=== PATIENT | female | born 1960 | race Caucasian/White ===

== ENCOUNTER 2017-06-01 13:27 | Emergency (ER) | payer OTHER, MEDICAID ==
[~2017-06-01] VITALS: Ht 167.6 cm; Wt 87.0 kg
[~2017-06-01 13:27] MED LIST: ALPR1TAB10 PO; AMIT150T PO; CARI250T9 PO; CIPR500T87 PO; ESCI20TA PO; FURO-92 PO; GABA-826 PO; INSU100V11 INJ; IPRA3AMP INH; LANS30CA PO; METF500T4 PO; METR500T8 PO; ONDA8TAB16 SL; OXYC1TAB9 PO; PANT40TA5 PO; PHEN473S4 PO; QUET100T PO; TEMA15CA PO; TOPI100T8 PO; TRIA10PO2
[2017-06-01] MEDS ORDERED: KETOROLAC 30 MG/1 ML ONE (15:27)
[2017-06-01] MEDS ORDERED: OXYcodone/APAP 5/325MG TABLET ONE (15:27)
[2017-06-01] MEDS ORDERED: KETOROLAC 30 MG/1 ML IM ONE (15:30)
[2017-06-01] MEDS ORDERED: OXYcodone/APAP 5/325MG TABLET PO ONE (15:30)
[2017-06-01 16:08] VITALS: BP 141/78
== END 2017-06-01 16:10 | disposition home or self-care (01) ==
LOC: ED 15:30
DX: S92.351A Displaced fracture of fifth metatarsal bone, right foot, initial encounter for closed fracture (principal); E11.65 Type 2 diabetes mellitus with hyperglycemia; E78.00 Pure hypercholesterolemia, unspecified; I10 Essential (primary) hypertension; M32.9 Systemic lupus erythematosus, unspecified; M79.7 Fibromyalgia; X50.1XXA Overexertion from prolonged static or awkward postures, initial encounter; Y93.89 Activity, other specified; Y92.89 Other specified places as the place of occurrence of the external cause; Y99.8 Other external cause status
CPT/HCPCS: 29515; 73630; 96372; 99284; J1885

== ENCOUNTER 2018-12-24 13:00 | Outpatient (CLI) | payer MEDICARE, MEDICAID | END 2018-12-24 23:59 | disposition home or self-care (01) | LOC: WOUND 13:00 | PROVIDERS: ATTEND Family Medicine | DX: E11.622 Type 2 diabetes mellitus with other skin ulcer (principal); L98.491 Non-pressure chronic ulcer of skin of other sites limited to breakdown of skin; I11.9 Hypertensive heart disease without heart failure; L93.1 Subacute cutaneous lupus erythematosus; J45.20 Mild intermittent asthma, uncomplicated; E78.5 Hyperlipidemia, unspecified; E66.9 Obesity, unspecified; Z68.32 Body mass index [BMI] 32.0-32.9, adult; Z79.4 Long term (current) use of insulin; Z87.891 Personal history of nicotine dependence; Z90.710 Acquired absence of both cervix and uterus | CPT/HCPCS: 97597; G0463 ==

== ENCOUNTER 2018-12-31 13:27 | Outpatient (CLI) | payer MEDICARE, MEDICAID | END 2018-12-31 23:59 | disposition home or self-care (01) | LOC: WOUND 13:27 | PROVIDERS: ATTEND Family Medicine | DX: E11.622 Type 2 diabetes mellitus with other skin ulcer (principal); L98.491 Non-pressure chronic ulcer of skin of other sites limited to breakdown of skin; S41.101D Unspecified open wound of right upper arm, subsequent encounter; E11.40 Type 2 diabetes mellitus with diabetic neuropathy, unspecified; I11.9 Hypertensive heart disease without heart failure; L93.1 Subacute cutaneous lupus erythematosus; J45.20 Mild intermittent asthma, uncomplicated; E78.5 Hyperlipidemia, unspecified; E66.9 Obesity, unspecified; Z68.32 Body mass index [BMI] 32.0-32.9, adult; Z79.4 Long term (current) use of insulin; Z87.891 Personal history of nicotine dependence; Z90.710 Acquired absence of both cervix and uterus; X58.XXXD Exposure to other specified factors, subsequent encounter | CPT/HCPCS: G0463 ==

== ENCOUNTER 2019-06-07 18:32 | Inpatient (IN) | payer BC, MEDICAID, MEDICARE ==
[~2019-06-07] VITALS: Ht 167.6 cm; Wt 89.9 kg
[~2019-06-07 18:32] MED LIST changes: -IPRA3AMP INH; +IPRA3AMP30 INH; +METF500T17 PO; -METF500T4 PO; +METR-90 PO; -METR500T8 PO; +OXYC-432 PO; -OXYC1TAB9 PO
[2019-06-07] MEDS ORDERED: ONDANSETRON 2MG/ML, 2ML ONE (18:45)
[2019-06-07] MEDS ORDERED: MORPHINE SULFATE 4 MG/ML, 1ML ONE ×2 (18:52→19:26)
[2019-06-07] MEDS ORDERED: SODIUM CHLORIDE 0.9% 1,000ML IVBOLUS ONE ×2 (19:00→19:30)
[2019-06-07] MEDS ORDERED: SODIUM CHLORIDE FLUSH 10ML SYR IVF ONE (19:00)
[2019-06-07] MEDS ORDERED: ONDANSETRON 2MG/ML, 2ML IVPush ONE (19:00)
[2019-06-07] MEDS ORDERED: PLEASE ENTER HEIGHT AND WEIGHT MC SCH (19:00)
[2019-06-07] MEDS: MORPHINE SULFATE 4 MG/ML, 1ML IVPush PRN ×2 (19:17→20:09)
[2019-06-07 19:19] LABS: ALANINE AMINOTRANSFERASE 28 U/L (12-78); ALBUMIN 3.3 g/dL (3.4-5.0); ANION GAP 10 mmol/L (5-15); CALCIUM 9.5 mg/dL (8.5-10.1); CHLORIDE 105 mmol/L (98-107)
[2019-06-07 19:21] LABS: ALKALINE PHOSPHATASE 119 U/L (45-117); BILIRUBIN,TOTAL 0.4 mg/dL (0.2-1.0); CREATININE 1.24 mg/dL (0.55-1.02); TOTAL PROTEIN 7.3 g/dL (6.4-8.2); TROPONIN I < 0.015 ng/mL (0.000-0.045)
[2019-06-07 19:34] LABS: BASOPHILS # (AUTO) 0.03 x10^3/uL (0-0.1); BASOPHILS % (AUTO) 0 % (0-1); EOSINOPHILS # (AUTO) 0.28 x10^3/uL (0-0.4); EOSINOPHILS % (AUTO) 2 % (1-7); LYMPHOCYTES # (AUTO) 3.64 x10^3/uL (1-3.4); LYMPHOCYTES % (AUTO) 27 % (22-44); MD NO; MEAN CORPUSCULAR HEMOGLOBIN 31.3 pg (27.0-34.8); MEAN CORPUSCULAR VOLUME 94.6 fL (80-100); MEAN PLATELET VOLUME 9.4 fL (7.4-10.4); MONOCYTES # (AUTO) 0.49 x10^3/uL (0.2-0.8); MONOCYTES % (AUTO) 4 % (2-9); NEUTROPHILS % (AUTO) 68 % (42-75); PLATELET COUNT 141 x10^3/uL (130-400); RED BLOOD COUNT 5.04 x10^6/uL (3.82-5.3); RED CELL DISTRIBUTION WIDTH 13.2 % (9.6-15.2)
--- NOTE | 2019-06-07 19:52 | NUR ---
PT PRESENTS TO ER VIA [facility]. WAS AT HER DR TODAY, RECEIVED TORADOL AND ANOTHER MEDICATION INJECTION FOR CHRONIC BACK PAIN, WENT AND ATE LUNCH AT [facility], AND BY THE TIME SHE GOT HOME HAD STARTED FEELING LIGHTHEADED AND HAVING PAINFUL STOMACH CRAMPS. PT ATTEMPTED TO GO TO THE BATHROOM WHEN SHE HAD A SYNCOPAL EPISODE WHILE ON THE TOILET, FALLING AND HITTING HER HEAD. PT NOTES PAIN IN BOTH LEFT AND RIGHT UPPER FOREHEAD, SMALL ECCHYMOSIS AND EDEMA NOTED TO THE LEFT, NO YA ON RIGHT. PT HAS IV IN LEFT INDEX FINGER. C/O N/V/D, NO DIARRHEA NOTED, PT UNABLE TO HAVE A BM AT THIS TIME DESPITE STRONG STOMACH CRAMPS AND URGE TO GO. ERP AT BEDSIDE FOR ASSESSMENT. CALL LIGHT IN REACH.
[2019-06-07] MEDS ORDERED: OMNIPAQUE 350 MG/ML, 100ML BOTTLE ONE (20:12)
[2019-06-07] MEDS ORDERED: MORPHINE SULFATE 4 MG/ML, 1ML IVPush PRN (20:30)
--- NOTE | 2019-06-07 20:54 | NUR ---
PT INCONTINENT OF STOOL, XXL BM, MOSTLY LIQUID AND MAROON IN COLOR. GUAIAC COLLECTED, ERP NOTIFIED. PT HAS MILD PAIN RELIEF UPON BM. DENIES ANY FURTHER NEEDS YESSI, CALL LIGHT IN REACH. PT REQUESTED THAT THIS NURSE CALL AND UPDATE HER SON ABOUT HER CONDITION. UPDATE GIVEN. PLEASE REFER ANY FURTHER MEDICAL INFORMATION TO REGINA. REGINA: [phone]
[2019-06-07] MEDS ORDERED: PANTOPRAZOLE 80 MG in SODIUM CHLORIDE 0.9% 50 ML IVPB ONE (21:54)
[2019-06-07] MEDS ORDERED: PIPERACILLIN/TAZO/PMX 3.375GM 50 ML ONE (22:12)
[2019-06-07] MEDS ORDERED: PANTOPRAZOLE 80 MG in SODIUM CHLORIDE 0.9% 100 ML IV SCH (22:30)
[2019-06-07] MEDS ORDERED: PIPERACILLIN/TAZO/PMX 3.375GM 50 ML IV ONE (22:30)
[2019-06-07] MEDS ORDERED: INSU100V8 SQ (22:31)
[2019-06-07] MEDS ORDERED: TRAM50TA2 PO (22:33)
[2019-06-07] MEDS ORDERED: LISI30TA4 PO (22:33)
[2019-06-07] MEDS ORDERED: MELO15TA24 PO (22:33)
--- NOTE | 2019-06-07 22:39 | NUR ---
pt cleaned again, vss, no complaints
[2019-06-07] MEDS: PIPERACILLIN/TAZO/PMX 3.375GM 50 ML IV SCH (23:30)
[2019-06-07] MEDS ORDERED: LIDODERM 5% PATCH TD PRN (23:30)
[2019-06-07] MEDS ORDERED: PHARMACY MAY ADJ FOR RENAL FX MC PRN (23:30)
[2019-06-07] MEDS ORDERED: BUPR1FIL21 TD (23:44)
--- NOTE | 2019-06-08 00:07 | NUR ---
pt resting in bed, ice bag given for her forhead on request, vss, no additional complaints at this time
--- NOTE | 2019-06-08 00:13 | NUR ---
admitting dr aware of white count and lactic, states that sepsis is not a high suspicion at this time, continuing to treat bleed, no additional orders
[2019-06-08 00:25] LABS: CLOSTRIDIUM DIFFICILE ANTIGEN NEGATIVE; CLOSTRIDIUM DIFFICILE TOXIN NEGATIVE (Negative)
[2019-06-08] MEDS ORDERED: ONDANSETRON 2MG/ML, 2ML ONE (00:32)
[2019-06-08] MEDS ORDERED: MORPHINE SULFATE 4 MG/ML, 1ML ONE (00:32)
--- NOTE | 2019-06-08 00:40 | NUR ---
report called to floor.
[2019-06-08] MEDS: ONDANSETRON 2MG/ML, 2ML IVPush PRN ×3 (00:41→19:51)
[2019-06-08 01:25] VITALS: BP 125/80
[2019-06-08] MEDS: HYDROmorphone 2 MG/ML, 1ML IVPush PRN ×8 (02:02→23:13)
[2019-06-08] MEDS: PIPERACILLIN/TAZO/PMX 3.375GM 50 ML IV SCH ×4 (03:56→23:12)
[2019-06-08] MEDS: LACTATED RINGERS 1,000 ML IV SCH ×3 (03:56→23:00)
[2019-06-08] MEDS: INSULIN GLARGINE 100 UNITS/ML, PEN SQ-INSULIN SCH ×2 (04:33→20:35)
[2019-06-08 05:50] VITALS: BP 117/80
[2019-06-08 06:26] LABS: ALBUMIN 3.2 g/dL (3.4-5.0); ANION GAP 11 mmol/L (5-15); CALCIUM 8.9 mg/dL (8.5-10.1); CHLORIDE 105 mmol/L (98-107)
[2019-06-08 06:32] LABS: ALANINE AMINOTRANSFERASE 27 U/L (12-78); ALKALINE PHOSPHATASE 196 U/L (45-117); BILIRUBIN,TOTAL 0.8 mg/dL (0.2-1.0); CHOL/HDL RATIO 7.9; CHOLESTEROL, TOTAL 230 mg/dL (140-239); CREATININE 1.34 mg/dL (0.55-1.02); HDL CHOL % 13 % (28-40); HDL CHOLESTEROL (DIRECT) 29 mg/dL (40-60); LDL CHOLESTEROL,CALCULATED 152 mg/dL (54-169); LDL/HDL RATIO 5.2 (0.5-3.0); TOTAL PROTEIN 7.4 g/dL (6.4-8.2); TRIGLYCERIDES 244 mg/dL (50-200); VLDL CHOLESTEROL 49 mg/dL (0-25)
[2019-06-08 06:33] LABS: MEAN CORPUSCULAR HEMOGLOBIN 31.4 pg (27.0-34.8); MEAN CORPUSCULAR HGB CONC 33.3 g/dL (32.4-35.8); MEAN CORPUSCULAR VOLUME 94.3 fL (80-100); RED CELL DISTRIBUTION WIDTH 13.9 % (9.6-15.2)
[2019-06-08 07:41] VITALS: BP 113/74
[2019-06-08 07:59] LABS: MEAN PLATELET VOLUME 9.8 fL (7.4-10.4); PLATELET COUNT 128 x10^3/uL (130-400)
[2019-06-08 08:00] LABS: MD YES
[2019-06-08 08:01] LABS: LYMPHS% (MANUAL) 9 % (22-44); MONOS#(MANUAL) 0.67 x10^3/uL (0.3-2.7); MONOS% (MANUAL) 4 % (2-9)
[2019-06-08 08:02] LABS: <RBC MORPHOLOGY> NORMAL; BAND#(MANUAL) 1.67 x10^3/uL; BANDS%(MANUAL) 10 % (0-7); SEG#(MANUAL) 12.86 x10^3/uL (1.8-6.8); SEGS% (MANUAL) 77 % (42-75)
[2019-06-08 08:03] LABS: <PLATELET ESTIMATE> DECREASED; LARGE PLATELETS 1+
[2019-06-08 08:32] LABS: CRYPTOSPORIDIUM ANTIGEN Negative (Negative)
[2019-06-08] MEDS: PANTOPRAZOLE 80 MG in SODIUM CHLORIDE 0.9% 100 ML IV SCH ×2 (09:56→20:02)
[2019-06-08] MEDS: INSULIN LISPRO 100 UNITS/ML, PEN SQ-INSULIN SCH ×4 (09:59→20:34)
[2019-06-08 13:00] VITALS: BP 121/81
[2019-06-08 13:24] LABS: AMPHETAMINE SCREEN, URINE Negative (Negative); BARBITURATE SCREEN, URINE Negative (Negative); BENZODIAZEPINE SCREEN, URINE Negative (Negative); CANNABINOID SCREEN, URINE Negative (Negative); COCAINE SCREEN, URINE Negative (Negative); METHADONE SCREEN, URINE Negative (Negative); OPIATE SCREEN, URINE Positive (Negative)
[2019-06-08] MEDS ORDERED: MOVIPREP POWDER 1 PREP KIT PO SCH (18:00)
[2019-06-08 19:35] VITALS: BP 141/90
[2019-06-08] MEDS: PROMETHAZINE 25 MG/ML, 1ML IM PRN (23:13)
[2019-06-09] VITALS: BP 113/78
[2019-06-09] MEDS: HYDROmorphone 2 MG/ML, 1ML IVPush PRN ×6 (02:28→23:02)
[2019-06-09] MEDS: PROMETHAZINE 25 MG/ML, 1ML IM PRN ×5 (03:07→23:02)
[2019-06-09 04:00] VITALS: BP 120/83
[2019-06-09] MEDS: PANTOPRAZOLE 80 MG in SODIUM CHLORIDE 0.9% 100 ML IV SCH ×2 (04:00→16:48)
[2019-06-09] MEDS: ONDANSETRON 2MG/ML, 2ML IVPush PRN (04:07)
[2019-06-09] MEDS: PIPERACILLIN/TAZO/PMX 3.375GM 50 ML IV SCH ×3 (05:25→18:20)
[2019-06-09 06:52] LABS: BASOPHILS # (AUTO) 0.04 x10^3/uL (0-0.1); BASOPHILS % (AUTO) 0 % (0-1); EOSINOPHILS # (AUTO) 0.09 x10^3/uL (0-0.4); EOSINOPHILS % (AUTO) 1 % (1-7); LYMPHOCYTES # (AUTO) 2.02 x10^3/uL (1-3.4); LYMPHOCYTES % (AUTO) 14 % (22-44); MD NO; MEAN CORPUSCULAR HEMOGLOBIN 31.2 pg (27.0-34.8); MEAN CORPUSCULAR VOLUME 94.7 fL (80-100); MEAN PLATELET VOLUME 9.1 fL (7.4-10.4); MONOCYTES # (AUTO) 0.64 x10^3/uL (0.2-0.8); MONOCYTES % (AUTO) 5 % (2-9); NEUTROPHILS # (AUTO) 11.36 x10^3/uL (1.8-6.8); NEUTROPHILS % (AUTO) 80 % (42-75); PLATELET COUNT 105 x10^3/uL (130-400); RED BLOOD COUNT 4.16 x10^6/uL (3.82-5.3); RED CELL DISTRIBUTION WIDTH 13.5 % (9.6-15.2)
[2019-06-09 06:59] LABS: ALBUMIN 2.6 g/dL (3.4-5.0); ANION GAP 8 mmol/L (5-15); CALCIUM 7.8 mg/dL (8.5-10.1); CHLORIDE 104 mmol/L (98-107)
[2019-06-09 07:03] LABS: ALANINE AMINOTRANSFERASE 22 U/L (12-78); ALKALINE PHOSPHATASE 87 U/L (45-117); BILIRUBIN,TOTAL 0.9 mg/dL (0.2-1.0); TOTAL PROTEIN 6.3 g/dL (6.4-8.2)
[2019-06-09] MEDS ORDERED: CALCIUM GLUCONATE 4.6 MEQ in SODIUM CHLORIDE 0.9% 100 ML IV ONE (08:00)
[2019-06-09] MEDS ORDERED: POTASSIUM CHLORIDE 20 MEQ in SODIUM CHLORIDE 0.9% 250 ML IV ONE (08:00)
[2019-06-09] MEDS: INSULIN LISPRO 100 UNITS/ML, PEN SQ-INSULIN SCH ×4 (08:09→19:43)
[2019-06-09] MEDS: LACTATED RINGERS 1,000 ML IV SCH (08:10)
[2019-06-09] MEDS ORDERED: MIDAZOLAM 1 MG/ML, 2ML ONE (08:53)
[2019-06-09] MEDS ORDERED: FENTANYL PF 100 MCG/2ML ONE (08:53)
[2019-06-09] MEDS ORDERED: PROPOFOL 10 MG/ML, 20ML ONE (08:55)
[2019-06-09] MEDS ORDERED: MEPERIDINE/PF 25MG/ML,1ML IVPush PRN (09:30)
[2019-06-09] MEDS ORDERED: LABETALOL 5MG/ML, 20ML IV PRN (09:30)
[2019-06-09] MEDS ORDERED: FENTANYL PF 100 MCG/2ML IV PRN (09:30)
[2019-06-09] MEDS ORDERED: HYDROmorphone 2 MG/ML, 1ML IVPush PRN (09:30)
[2019-06-09] MEDS ORDERED: ONDANSETRON 2MG/ML, 2ML IV PRN (09:30)
[2019-06-09] MEDS ORDERED: OXYcodone 5 MG/5 ML ORAL.SOL UDC PO PRN (09:30)
[2019-06-09] MEDS ORDERED: LABETALOL 5 MG/ML SYR. (IV ONLY) IV PRN (10:00)
[2019-06-09 10:15] VITALS: BP 115/79
[2019-06-09 13:24] LABS: INTERNATIONAL NORMALIZED RATIO 1.09 (0.93-1.1); PROTHROMBIN TIME 11.6 Seconds (9.6-11.5)
[2019-06-09 15:25] VITALS: BP 129/73
[2019-06-09] MEDS ORDERED: POTASSIUM CHLORIDE 20 MEQ in SODIUM CHLORIDE 0.45% 1,000 ML IV SCH (16:30)
[2019-06-09] MEDS: D5%-0.45NACL+KCL 20MEQ 1,000 ML IV SCH (18:48)
[2019-06-09 19:00] VITALS: BP 150/91
[2019-06-09] MEDS: INSULIN GLARGINE 100 UNITS/ML, PEN SQ-INSULIN SCH (19:43)
[2019-06-10] VITALS: BP 140/89
[2019-06-10] MEDS: PIPERACILLIN/TAZO/PMX 3.375GM 50 ML IV SCH ×4 (00:52→19:16)
[2019-06-10] MEDS: PROMETHAZINE 25 MG/ML, 1ML IM PRN ×5 (02:29→19:30)
[2019-06-10] MEDS: PANTOPRAZOLE 80 MG in SODIUM CHLORIDE 0.9% 100 ML IV SCH ×3 (02:29→22:34)
[2019-06-10] MEDS: HYDROmorphone 2 MG/ML, 1ML IVPush PRN ×6 (02:30→19:30)
[2019-06-10 03:48] VITALS: BP 160/78
[2019-06-10] MEDS: D5%-0.45NACL+KCL 20MEQ 1,000 ML IV SCH (05:19)
[2019-06-10 06:50] LABS: BASOPHILS # (AUTO) 0.01 x10^3/uL (0-0.1); BASOPHILS % (AUTO) 0 % (0-1); EOSINOPHILS # (AUTO) 0.11 x10^3/uL (0-0.4); EOSINOPHILS % (AUTO) 1 % (1-7); LYMPHOCYTES # (AUTO) 1.77 x10^3/uL (1-3.4); LYMPHOCYTES % (AUTO) 18 % (22-44); MD NO; MEAN CORPUSCULAR HEMOGLOBIN 31.4 pg (27.0-34.8); MEAN CORPUSCULAR HGB CONC 33.2 g/dL (32.4-35.8); MEAN CORPUSCULAR VOLUME 94.6 fL (80-100); MEAN PLATELET VOLUME 8.6 fL (7.4-10.4); MONOCYTES # (AUTO) 0.37 x10^3/uL (0.2-0.8); MONOCYTES % (AUTO) 4 % (2-9); NEUTROPHILS # (AUTO) 7.36 x10^3/uL (1.8-6.8); NEUTROPHILS % (AUTO) 77 % (42-75); PLATELET COUNT 102 x10^3/uL (130-400); RED BLOOD COUNT 3.91 x10^6/uL (3.82-5.3); RED CELL DISTRIBUTION WIDTH 13.2 % (9.6-15.2)
[2019-06-10 06:52] LABS: ALBUMIN 2.4 g/dL (3.4-5.0); ANION GAP 8 mmol/L (5-15); CALCIUM 7.7 mg/dL (8.5-10.1); CHLORIDE 105 mmol/L (98-107)
[2019-06-10 06:54] LABS: CREATININE 0.58 mg/dL (0.55-1.02)
[2019-06-10 07:22] VITALS: BP 128/74
[2019-06-10] MEDS: INSULIN LISPRO 100 UNITS/ML, PEN SQ-INSULIN SCH ×4 (08:54→19:31)
[2019-06-10] MEDS ORDERED: POTASSIUM PHOSPHATE 44 MEQ in SODIUM CHLORIDE 0.9% 500 ML IV ONE (09:00)
[2019-06-10] MEDS ORDERED: MAGNESIUM SULFATE PMX 2GM/50ML 50 ML IV ONE (09:00)
[2019-06-10] MEDS ORDERED: CALCIUM GLUCONATE 4.6 MEQ in SODIUM CHLORIDE 0.9% 50 ML IV ONE (09:00)
[2019-06-10] MEDS: ONDANSETRON 2MG/ML, 2ML IVPush PRN (11:22)
[2019-06-10] MEDS: ACETAMINOPHEN 500 MG TABLET PO PRN ×2 (12:13→21:45)
[2019-06-10 12:40] VITALS: BP 176/95
[2019-06-10 17:09] VITALS: BP 155/90
[2019-06-10] MEDS: INSULIN GLARGINE 100 UNITS/ML, PEN SQ-INSULIN SCH (19:31)
[2019-06-10 19:41] VITALS: BP 148/80
[2019-06-10] MEDS ORDERED: HYDROmorphone 2 MG/ML, 1ML IVPush PRN (20:30)
[2019-06-11] VITALS: BP 146/84
[2019-06-11] MEDS: PIPERACILLIN/TAZO/PMX 3.375GM 50 ML IV SCH ×4 (00:13→18:37)
[2019-06-11] MEDS: PROMETHAZINE 25 MG/ML, 1ML IM PRN ×3 (00:14→09:42)
[2019-06-11] MEDS: HYDROmorphone 2 MG/ML, 1ML IVPush PRN ×3 (00:14→09:40)
[2019-06-11 04:00] VITALS: BP 140/82
[2019-06-11] MEDS: D5%-0.45NACL+KCL 20MEQ 1,000 ML IV SCH (05:04)
[2019-06-11 06:14] LABS: BASOPHILS # (AUTO) 0.02 x10^3/uL (0-0.1); BASOPHILS % (AUTO) 0 % (0-1); EOSINOPHILS # (AUTO) 0.15 x10^3/uL (0-0.4); EOSINOPHILS % (AUTO) 2 % (1-7); LYMPHOCYTES # (AUTO) 2.06 x10^3/uL (1-3.4); LYMPHOCYTES % (AUTO) 28 % (22-44); MD NO; MEAN CORPUSCULAR HEMOGLOBIN 31.6 pg (27.0-34.8); MEAN CORPUSCULAR HGB CONC 33.7 g/dL (32.4-35.8); MEAN CORPUSCULAR VOLUME 93.8 fL (80-100); MEAN PLATELET VOLUME 8.3 fL (7.4-10.4); MONOCYTES # (AUTO) 0.35 x10^3/uL (0.2-0.8); MONOCYTES % (AUTO) 5 % (2-9); NEUTROPHILS # (AUTO) 4.92 x10^3/uL (1.8-6.8); NEUTROPHILS % (AUTO) 66 % (42-75); PLATELET COUNT 123 x10^3/uL (130-400); RED BLOOD COUNT 3.95 x10^6/uL (3.82-5.3); RED CELL DISTRIBUTION WIDTH 12.9 % (9.6-15.2)
[2019-06-11 06:15] LABS: ALBUMIN 2.5 g/dL (3.4-5.0); ANION GAP 6 mmol/L (5-15); CALCIUM 7.4 mg/dL (8.5-10.1); CHLORIDE 105 mmol/L (98-107)
[2019-06-11 06:16] LABS: CREATININE 0.67 mg/dL (0.55-1.02)
[2019-06-11 08:21] VITALS: BP 157/92
[2019-06-11] MEDS: INSULIN LISPRO 100 UNITS/ML, PEN SQ-INSULIN SCH ×4 (09:42→20:38)
[2019-06-11] MEDS ORDERED: HYDROmorphone 2 MG/ML, 1ML IVPush PRN (12:30)
[2019-06-11 12:38] VITALS: BP 153/92
[2019-06-11] MEDS: PANTOPRAZOLE 20MG TABLET PO SCH ×2 (12:44→18:39)
[2019-06-11] MEDS: ASA/APAP/ CAFFEINE TABLET PO PRN (12:44)
[2019-06-11] MEDS: OXYcodone/APAP 10/325MG TABLET PO PRN ×2 (12:44→18:40)
[2019-06-11 19:35] VITALS: BP 150/80
[2019-06-11] MEDS: INSULIN GLARGINE 100 UNITS/ML, PEN SQ-INSULIN SCH (20:37)
[2019-06-12] VITALS: BP 145/83
[2019-06-12] MEDS: OXYcodone/APAP 10/325MG TABLET PO PRN ×2 (00:29→06:18)
[2019-06-12] MEDS: PIPERACILLIN/TAZO/PMX 3.375GM 50 ML IV SCH ×2 (00:30→06:18)
[2019-06-12 04:51] VITALS: BP 156/83
[2019-06-12] MEDS: PANTOPRAZOLE 20MG TABLET PO SCH (05:09)
[2019-06-12 06:42] LABS: BASOPHILS # (AUTO) 0.03 x10^3/uL (0-0.1); BASOPHILS % (AUTO) 1 % (0-1); EOSINOPHILS # (AUTO) 0.14 x10^3/uL (0-0.4); EOSINOPHILS % (AUTO) 2 % (1-7); LYMPHOCYTES # (AUTO) 1.91 x10^3/uL (1-3.4); LYMPHOCYTES % (AUTO) 29 % (22-44); MD NO; MEAN CORPUSCULAR HEMOGLOBIN 31.1 pg (27.0-34.8); MEAN CORPUSCULAR HGB CONC 33.2 g/dL (32.4-35.8); MEAN CORPUSCULAR VOLUME 93.6 fL (80-100); MEAN PLATELET VOLUME 7.8 fL (7.4-10.4); MONOCYTES # (AUTO) 0.36 x10^3/uL (0.2-0.8); MONOCYTES % (AUTO) 5 % (2-9); NEUTROPHILS % (AUTO) 63 % (42-75); PLATELET COUNT 168 x10^3/uL (130-400); RED BLOOD COUNT 4.19 x10^6/uL (3.82-5.3); RED CELL DISTRIBUTION WIDTH 12.7 % (9.6-15.2)
[2019-06-12 06:53] LABS: ANION GAP 6 mmol/L (5-15); CALCIUM 8.4 mg/dL (8.5-10.1); CHLORIDE 103 mmol/L (98-107)
[2019-06-12 06:54] LABS: CREATININE 0.63 mg/dL (0.55-1.02)
[2019-06-12 07:47] VITALS: BP 164/97
[2019-06-12] MEDS: INSULIN LISPRO 100 UNITS/ML, PEN SQ-INSULIN SCH ×2 (07:57→11:34)
[2019-06-12] MEDS ORDERED: BUPR1PAT7 TD (08:46)
[2019-06-12] MEDS ORDERED: OMEP-110 PO (08:46)
[2019-06-12] MEDS ORDERED: AMOX1TAB12 PO (08:46)
[2019-06-12] MEDS ORDERED: PROM25TA10 PO (08:46)
[2019-06-12] MEDS ORDERED: POTA20TA91 PO (08:46)
[2019-06-12] MEDS: PROMETHAZINE 25 MG/ML, 1ML IM PRN (09:31)
[2019-06-12] MEDS: ASA/APAP/ CAFFEINE TABLET PO PRN (09:32)
== END 2019-06-12 12:29 | disposition home or self-care (01) | DRG 871 ==
LOC: ED 22:45 → EDIP 23:07 → 4WST 06-08 00:58 → DCLOUNGE 06-12 12:00
PROVIDERS: ADMIT Family Medicine; ATTEND Family Medicine
PROC: 0DBM8ZX Excision of Descending Colon, Via Natural or Artificial Opening Endoscopic, Diagnostic (ICD-10-PCS; principal; 2019-06-09 08:30)
DX: A41.9 Sepsis, unspecified organism (principal); N17.0 Acute kidney failure with tubular necrosis; A09 Infectious gastroenteritis and colitis, unspecified; K55.9 Vascular disorder of intestine, unspecified; E46 Unspecified protein-calorie malnutrition; K56.7 Ileus, unspecified; K92.1 Melena; D62 Acute posthemorrhagic anemia; E11.43 Type 2 diabetes mellitus with diabetic autonomic (poly)neuropathy; E11.65 Type 2 diabetes mellitus with hyperglycemia; E66.9 Obesity, unspecified; E78.00 Pure hypercholesterolemia, unspecified; E78.5 Hyperlipidemia, unspecified; G89.29 Other chronic pain; I10 Essential (primary) hypertension; I25.10 Atherosclerotic heart disease of native coronary artery without angina pectoris; J44.9 Chronic obstructive pulmonary disease, unspecified; K74.60 Unspecified cirrhosis of liver; S00.83XA Contusion of other part of head, initial encounter; K59.03 Drug induced constipation; K75.81 Nonalcoholic steatohepatitis (NASH); M32.9 Systemic lupus erythematosus, unspecified; R32 Unspecified urinary incontinence; F17.210 Nicotine dependence, cigarettes, uncomplicated; Z68.32 Body mass index [BMI] 32.0-32.9, adult; T40.605A Adverse effect of unspecified narcotics, initial encounter; Z79.4 Long term (current) use of insulin; Z79.891 Long term (current) use of opiate analgesic; Z90.710 Acquired absence of both cervix and uterus; W18.39XA Other fall on same level, initial encounter; Y93.89 Activity, other specified; Y92.89 Other specified places as the place of occurrence of the external cause; Y99.8 Other external cause status
CPT/HCPCS: 36415; 70450; 70486; 71045; 71046; 72125; 74174; 80048; 80053; 80061; 80069; 80307; 82962; 83036; 83605; 83615; 83735; 84100; 84484; 85014; 85018; 85025; 85610; 86850; 86900; 87040; 87324; 87328; 87329; 88305; 93005; 96365; 96368; 96375; 96376; G0378; J0610; J1170; J2250; J2405; J2543; J2550; J2704; J3010; J3480; Q9967; C9113; J1815; J2270; J3475; J7030; J7040; J7050; J7120

== ENCOUNTER → 2020-07-11 | Outpatient (CLI) | payer MEDICARE, MEDICAID ==
[~2020-07-11] MED LIST changes: +ALBU8.5H8 INH; +AMOX1TAB12 PO; +BUPR1FIL21 TD; +BUPR1PAT7 TD; -ESCI20TA PO; +ESCI20TA8 PO; +HYDR50TA99 PO; +INSU100V8 SQ; +LISI30TA4 PO; +MELO15TA24 PO; +MELO7.5T31 PO; +METF10007 PO; +OMEP-110 PO; +ONDA4TAB7 PO; -OXYC-432 PO; +OXYC1TAB18 PO; -PANT40TA5 PO; +PANT40TA6 PO; +POTA20TA91 PO; +PROM25TA10 PO; +TRAM50TA2 PO; +TRIA15CR53 TP
[2020-07-11 09:31] LABS: BASOPHILS % (AUTO) 1 % (0-1); EOSINOPHILS % (AUTO) 5 % (1-7); LYMPHOCYTES % (AUTO) 36 % (22-44); MEAN CORPUSCULAR HEMOGLOBIN 30.8 pg (27.0-34.8); MEAN CORPUSCULAR HGB CONC 33.9 g/dL (32.4-35.8); MEAN PLATELET VOLUME 8.2 fL (7.4-10.4); MONOCYTES % (AUTO) 6 % (2-9); NEUTROPHILS % (AUTO) 53 % (42-75); PLATELET COUNT 155 x10^3/uL (130-400); RED CELL DISTRIBUTION WIDTH 14.1 % (9.6-15.2)
[2020-07-11 09:37] LABS: MD NO
[2020-07-11 09:42] LABS: MICROSCOPIC INDICATED
[2020-07-11 09:43] LABS: ALBUMIN 3.6 g/dL (3.4-5.0); CALCIUM 9.1 mg/dL (8.5-10.1); CHLORIDE 106 mmol/L (98-107)
[2020-07-11 09:44] LABS: INTERNATIONAL NORMALIZED RATIO 1.04 (0.93-1.1); PROTHROMBIN TIME 11.1 Seconds (9.6-11.5)
[2020-07-11 09:49] LABS: ALANINE AMINOTRANSFERASE 26 U/L (12-78); ALKALINE PHOSPHATASE 98 U/L (45-117); ANION GAP 8 mmol/L (5-15); BILIRUBIN,TOTAL 0.6 mg/dL (0.2-1.0); CREATININE 0.88 mg/dL (0.55-1.02); TOTAL PROTEIN 7.8 g/dL (6.4-8.2)
== END | disposition home or self-care (01) ==
LOC: STAR 08:30
PROVIDERS: ATTEND Neurological Surgery
DX: Z01.812 Encounter for preprocedural laboratory examination (principal); Z20.822 Contact with and (suspected) exposure to COVID-19; M48.061 Spinal stenosis, lumbar region without neurogenic claudication; M51.36 Other intervertebral disc degeneration, lumbar region; M25.78 Osteophyte, vertebrae; M41.86 Other forms of scoliosis, lumbar region
CPT/HCPCS: 72110; 80053; 81001; 85025; 85610; 85730; 87086; 87147; 87635

== ENCOUNTER 2020-07-17 08:00 | Outpatient (CLI) | payer MEDICARE, MEDICAID ==
[2020-07-16 09:49] LABS: MICROSCOPIC AUTO
[~2020-07-17] VITALS: Ht 165.1 cm; Wt 79.5 kg
[2020-08-08] MEDS ORDERED: HYDR1TAB53 PO (09:06)
[2020-08-08] MEDS ORDERED: BUPR1PAT22 TD (09:06)
[2020-08-13] MEDS ORDERED: AMIT150T PO (06:18)
== END 2020-07-17 23:59 | disposition home or self-care (01) ==
LOC: LAB 08:00 → EDSTATUS 09:30 → LAB 23:59
PROVIDERS: ATTEND Neurological Surgery
DX: N39.0 Urinary tract infection, site not specified (principal)
CPT/HCPCS: 81001; 87086; 87147

== ENCOUNTER → 2020-08-08 | Outpatient (CLI) | payer MEDICARE, MEDICAID ==
[~2020-08-08] MED LIST changes: +BUPR1PAT22 TD; +HYDR1TAB53 PO
== END | disposition home or self-care (01) ==
LOC: CFH 10:13
PROVIDERS: ATTEND Neurological Surgery
DX: M47.816 Spondylosis without myelopathy or radiculopathy, lumbar region (principal); M43.16 Spondylolisthesis, lumbar region; M48.061 Spinal stenosis, lumbar region without neurogenic claudication
CPT/HCPCS: 72131

== ENCOUNTER → 2020-08-08 | Outpatient (CLI) | payer MEDICARE, MEDICAID ==
[2020-08-08 09:31] LABS: MICROSCOPIC NOT IND
[2020-08-08 09:33] LABS: BASOPHILS % (AUTO) 1 % (0-1); EOSINOPHILS % (AUTO) 2 % (1-7); LYMPHOCYTES % (AUTO) 32 % (22-44); MEAN CORPUSCULAR HEMOGLOBIN 31.4 pg (27.0-34.8); MEAN CORPUSCULAR HGB CONC 33.9 g/dL (32.4-35.8); MEAN PLATELET VOLUME 8.8 fL (7.4-10.4); MONOCYTES % (AUTO) 7 % (2-9); NEUTROPHILS % (AUTO) 59 % (42-75); PLATELET COUNT 132 x10^3/uL (130-400); RED BLOOD COUNT 4.57 x10^6/uL (3.82-5.3); RED CELL DISTRIBUTION WIDTH 14.4 % (9.6-15.2)
[2020-08-08 09:37] LABS: MD NO
[2020-08-08 09:39] LABS: INTERNATIONAL NORMALIZED RATIO 1.07 (0.93-1.1); PROTHROMBIN TIME 11.4 Seconds (9.6-11.5)
[2020-08-08 10:13] LABS: ALBUMIN 3.3 g/dL (3.4-5.0); ANION GAP 5 mmol/L (5-15); CALCIUM 8.4 mg/dL (8.5-10.1); CHLORIDE 104 mmol/L (98-107)
[2020-08-08 10:20] LABS: ALANINE AMINOTRANSFERASE 30 U/L (12-78); ALKALINE PHOSPHATASE 88 U/L (45-117); BILIRUBIN,TOTAL 0.6 mg/dL (0.2-1.0); CREATININE 0.79 mg/dL (0.55-1.02); TOTAL PROTEIN 7.1 g/dL (6.4-8.2)
== END | disposition home or self-care (01) ==
LOC: STAR 08:10
PROVIDERS: ATTEND Neurological Surgery
DX: Z01.812 Encounter for preprocedural laboratory examination (principal); Z20.822 Contact with and (suspected) exposure to COVID-19; M48.061 Spinal stenosis, lumbar region without neurogenic claudication
CPT/HCPCS: 36415; 80053; 81003; 85025; 85610; 85730; 93005; U0003

== ENCOUNTER 2020-08-24 22:05 | Inpatient (IN) | payer MEDICARE, MEDICAID ==
[~2020-08-24] VITALS: Ht 167.6 cm; Wt 95.9 kg
[~2020-08-24 22:05] MED LIST changes: +CYCL10TA2 PO
--- NOTE | 2020-08-24 22:15 | NUR ---
ASSUMED CARE OF PATIENT. PATIENT REPORTS N/V/D TODAY. PT HAD BACK SURGERY ON THE 08/13. VS STABLE. NO ACUTE DISTRESS NOTED. CALL LIGHT IN PLACE. PT SEEN BY DR DAVIDSON. WILL CONTINUE TO MONITOR.
[2020-08-24] MEDS ORDERED: ONDANSETRON 2MG/ML, 2ML IVPush ONE (22:30)
[2020-08-24] MEDS ORDERED: OMNIPAQUE 350 MG/ML, 100ML BOTTLE ONE (22:30)
[2020-08-24] MEDS ORDERED: FAMOTIDINE 20 MG/2 ML IVPush ONE (22:30)
[2020-08-24 22:41] LABS: BASOPHILS % (AUTO) 0 % (0-1); EOSINOPHILS % (AUTO) 1 % (1-7); LYMPHOCYTES % (AUTO) 9 % (22-44); MEAN CORPUSCULAR HEMOGLOBIN 31.5 pg (27.0-34.8); MEAN CORPUSCULAR HGB CONC 33.9 g/dL (32.4-35.8); MEAN PLATELET VOLUME 7.4 fL (7.4-10.4); MONOCYTES % (AUTO) 3 % (2-9); NEUTROPHILS % (AUTO) 88 % (42-75); PLATELET COUNT 341 x10^3/uL (130-400); RED CELL DISTRIBUTION WIDTH 13.7 % (9.6-15.2)
[2020-08-24 22:42] LABS: MD NO
[2020-08-24] MEDS ORDERED: MORPHINE SULFATE 4 MG/ML, 1ML ONE (22:43)
[2020-08-24] MEDS ORDERED: ONDANSETRON 2MG/ML, 2ML ONE (22:44)
[2020-08-24] MEDS ORDERED: FAMOTIDINE 20 MG/2 ML ONE (22:45)
[2020-08-24 22:54] LABS: ALANINE AMINOTRANSFERASE 24 U/L (12-78); ALBUMIN 3.2 g/dL (3.4-5.0); ANION GAP 7 mmol/L (5-15); CALCIUM 9.7 mg/dL (8.5-10.1); CHLORIDE 99 mmol/L (98-107); CREATININE 0.72 mg/dL (0.55-1.02)
[2020-08-24] MEDS: MORPHINE SULFATE 4 MG/ML, 1ML IVPush PRN (22:54)
[2020-08-24 22:56] LABS: ALKALINE PHOSPHATASE 105 U/L (45-117); BILIRUBIN,TOTAL 0.5 mg/dL (0.2-1.0); TOTAL PROTEIN 8.2 g/dL (6.4-8.2)
--- NOTE | 2020-08-24 22:59 | NUR ---
PT RESTING IN ROOM. VS STABLE. LINE PRODUCER ON. CALL LIGHT IN PLACE. WILL CONTINUE TO MONITOR.
[2020-08-24] MEDS ORDERED: SODIUM CHLORIDE 0.9% 1,000ML IVBOLUS ONE (23:00)
--- NOTE | 2020-08-24 23:11 | NUR ---
vs stable. pt went to ct
--- NOTE | 2020-08-24 23:31 | NUR ---
PT BACK FROM CT. PT GIVEN A WARM BLANKET. VS STABLE. NO ACUTE DISTRESS NOTED. WILL COTINUE TO MONITOR.
--- NOTE | 2020-08-25 00:09 | NUR ---
pt in bed with no signs or symptoms of acute distress noted respirations even and unlabored satting well on nc aith o2 at 2l/min . ivf complete. pt complaining of nausea. pt on cardiac cath lab technologist with lights low in room for comfort and bed rails up bilaterally. call light within reach.
--- NOTE | 2020-08-25 00:09 | NUR ---
BEDSIDE REPORT GIVEN TO KACI SHUKLA
[2020-08-25] MEDS ORDERED: ONDANSETRON 2MG/ML, 2ML ONE (00:41)
[2020-08-25] MEDS ORDERED: MORPHINE SULFATE 4 MG/ML, 1ML ONE (00:41)
[2020-08-25] MEDS: MORPHINE SULFATE 4 MG/ML, 1ML IVPush PRN (00:48)
[2020-08-25] MEDS ORDERED: ONDANSETRON 2MG/ML, 2ML IVPush ONE (01:00)
[2020-08-25] MEDS ORDERED: LORazepam 2 MG/ML, 1ML ONE (01:10)
--- NOTE | 2020-08-25 01:14 | NUR ---
pt noted to be vomiting volumously, md aware, new order noted for iv zofran. pt also noted to have a formed stool in bed, pt cleaned and md aware, states he will cancel ordered cdiff labs. md states pt has a small bowel obstruction, pt updated on plan of care. rn x2 in room to clean pt and place ng, this rn able to place 14fr ngt into r nares, pt had a hard time tolerating procedure but calmed somewhat once 300ml if bileous output into suction. pt on low intermittent suction, with emesis bag in hand but no long actively vomiting. hospitalist in to assess. pt placed on simple mask at 4l/min. pt medicated as ordered with iv ativan and xray done to confirm placement. pt sitting in high fowlers in bed with emesis bag in hand and ngt clipped to nose. call light within reach.
[2020-08-25] MEDS ORDERED: LORazepam 2 MG/ML, 1ML IVPush ONE (01:30)
--- NOTE | 2020-08-25 01:38 | NUR ---
report called to floor pt ready for transport
[2020-08-25] MEDS ORDERED: DEXTROSE 4 GM TAB.CHEW PO PRN (02:30)
[2020-08-25] MEDS ORDERED: OXYcodone IR 5MG TABLET PO PRN (02:30)
[2020-08-25] MEDS ORDERED: DEXTROSE 50%, 50ML SYRINGE IVPush PRN (02:30)
[2020-08-25] MEDS ORDERED: hydrALAzine 20 MG/ML, 1ML IVPush PRN (02:30)
[2020-08-25] MEDS ORDERED: ALBUTEROL HFA 90 MCG/SPRAY INH PRN (02:30)
[2020-08-25] MEDS ORDERED: TRIAMCINOLONE CRM 0.5%, 15GM TP PRN (02:30)
[2020-08-25] MEDS ORDERED: GLUCAGON 1 MG IM PRN (02:30)
[2020-08-25] MEDS ORDERED: ONDANSETRON ODT 4 MG PO PRN (02:30)
[2020-08-25] MEDS ORDERED: POTASSIUM CHLORIDE 40 MEQ in SODIUM CHLORIDE 0.9% 500 ML IV ONE (02:30)
[2020-08-25] MEDS: SODIUM CHLORIDE 0.9% 1,000 ML IV SCH ×3 (02:31→17:56)
[2020-08-25] MEDS: morphine SULFATE 10 MG/ML, 1ML IVPush PRN ×4 (02:44→14:21)
[2020-08-25] MEDS: HEPARIN 5,000 UNITS/ML, 1ML SQ SCH ×3 (02:45→18:26)
[2020-08-25 03:09] VITALS: BP 135/90
[2020-08-25 03:11] VITALS: BP 135/90
[2020-08-25] MEDS: INSULIN LISPRO 100 UNITS/ML, PEN SQ-INSULIN SCH ×4 (03:39→16:00)
[2020-08-25 03:43] LABS: BASOPHILS % (AUTO) 0 % (0-1); EOSINOPHILS % (AUTO) 0 % (1-7); LYMPHOCYTES % (AUTO) 7 % (22-44); MEAN CORPUSCULAR HEMOGLOBIN 31.1 pg (27.0-34.8); MEAN CORPUSCULAR HGB CONC 33.5 g/dL (32.4-35.8); MEAN PLATELET VOLUME 7.5 fL (7.4-10.4); MONOCYTES % (AUTO) 3 % (2-9); NEUTROPHILS % (AUTO) 89 % (42-75); PLATELET COUNT 266 x10^3/uL (130-400); RED BLOOD COUNT 3.77 x10^6/uL (3.82-5.3); RED CELL DISTRIBUTION WIDTH 14.1 % (9.6-15.2)
[2020-08-25 03:53] LABS: MD NO
[2020-08-25 03:55] LABS: ALANINE AMINOTRANSFERASE 21 U/L (12-78); ALBUMIN 2.8 g/dL (3.4-5.0); ANION GAP 5 mmol/L (5-15); CALCIUM 8.9 mg/dL (8.5-10.1); CHLORIDE 104 mmol/L (98-107); CHOLESTEROL, TOTAL 171 mg/dL (140-239); CREATININE 0.57 mg/dL (0.55-1.02)
[2020-08-25 04:03] LABS: ALKALINE PHOSPHATASE 94 U/L (45-117); BILIRUBIN,TOTAL 0.4 mg/dL (0.2-1.0); CHOL/HDL RATIO 7.1; HDL CHOL % 14 % (28-40); HDL CHOLESTEROL (DIRECT) 24 mg/dL (40-60); LDL CHOLESTEROL,CALCULATED 110 mg/dL (54-169); TOTAL PROTEIN 7.1 g/dL (6.4-8.2); TRIGLYCERIDES 187 mg/dL (50-200); VLDL CHOLESTEROL 37 mg/dL (0-25)
[2020-08-25 04:04] LABS: LDL/HDL RATIO 4.6 (0.5-3.0)
[2020-08-25] MEDS: ONDANSETRON 2MG/ML, 2ML IVPush PRN (05:15)
[2020-08-25 07:10] VITALS: BP 147/94
[2020-08-25] MEDS ORDERED: MAGNESIUM SULFATE PMX 2GM/50ML 50 ML IV ONE (08:00)
[2020-08-25] MEDS: LISINOPRIL 10 MG TABLET PO SCH (08:29)
[2020-08-25] MEDS: SODIUM CHLORIDE FLUSH 10ML SYR IVF SCH ×2 (08:32→21:00)
[2020-08-25] MEDS: PROMETHAZINE 25 MG/ML, 1ML IM PRN ×2 (08:41→18:27)
[2020-08-25] MEDS: NS + 20MEQ KCL 1,000 ML IV SCH ×2 (08:42→16:57)
[2020-08-25 13:47] VITALS: BP 146/75
[2020-08-25] MEDS: HYDROmorphone 1 MG/ML, 1ML INJ IV PRN ×2 (16:56→20:19)
[2020-08-25 19:35] VITALS: BP 139/87
[2020-08-25] MEDS: AMITRIPTYLINE 75 MG TABLET PO SCH (20:19)
[2020-08-25] MEDS: TEMAZEPAM 15 MG CAPSULE PO SCH (20:19)
[2020-08-26] MEDS: NS + 20MEQ KCL 1,000 ML IV SCH ×2 (00:56→08:23)
[2020-08-26] MEDS: HEPARIN 5,000 UNITS/ML, 1ML SQ SCH (02:02)
[2020-08-26] MEDS: SODIUM CHLORIDE 0.9% 1,000 ML IV SCH ×2 (02:30→10:30)
[2020-08-26 02:40] VITALS: BP 152/89
[2020-08-26] MEDS: HYDROmorphone 1 MG/ML, 1ML INJ IV PRN ×3 (02:54→08:34)
[2020-08-26 06:45] LABS: ALBUMIN 2.4 g/dL (3.4-5.0); ANION GAP 4 mmol/L (5-15); CALCIUM 7.9 mg/dL (8.5-10.1); CHLORIDE 111 mmol/L (98-107)
[2020-08-26 06:48] LABS: ALANINE AMINOTRANSFERASE 15 U/L (12-78); ALKALINE PHOSPHATASE 79 U/L (45-117); BILIRUBIN,TOTAL 0.3 mg/dL (0.2-1.0); CREATININE 0.57 mg/dL (0.55-1.02); TOTAL PROTEIN 6.1 g/dL (6.4-8.2)
[2020-08-26 07:44] VITALS: BP 135/86
[2020-08-26] MEDS: SODIUM CHLORIDE FLUSH 10ML SYR IVF SCH ×2 (08:35→20:04)
[2020-08-26] MEDS: LISINOPRIL 10 MG TABLET PO SCH (09:43)
[2020-08-26] MEDS ORDERED: HYDROmorphone 1 MG/ML, 1ML INJ IV PRN ×2 (11:00→19:30)
[2020-08-26] MEDS ORDERED: SUGAMMADEX 200 MG/2 ML IVPush ONE (12:09)
[2020-08-26] MEDS ORDERED: ONDANSETRON 2MG/ML, 2ML ONE (12:09)
[2020-08-26] MEDS ORDERED: ROCURONIUM 10 MG/ML,10ML ONE (12:09)
[2020-08-26] MEDS ORDERED: PROPOFOL 10 MG/ML, 20ML ONE (12:09)
[2020-08-26] MEDS ORDERED: CEFAZOLIN 1,000 MG ONE (12:09)
[2020-08-26] MEDS ORDERED: MIDAZOLAM 1 MG/ML, 2ML ONE (12:10)
[2020-08-26] MEDS ORDERED: FENTANYL PF 250 MCG/5ML ONE (12:37)
[2020-08-26] MEDS ORDERED: OXYcodone 5 MG/5 ML ORAL.SOL UDC ONE (13:01)
[2020-08-26] MEDS ORDERED: FENTANYL PF 100 MCG/2ML ONE ×2 (13:01→13:18)
[2020-08-26] MEDS: FENTANYL PF 100 MCG/2ML IV PRN ×5 (13:04→14:01)
[2020-08-26] MEDS ORDERED: HYDROmorphone 1 MG/ML, 1ML INJ ONE ×2 (13:05→13:11)
[2020-08-26] MEDS ORDERED: DIAZEPAM 5 MG/ML, 2ML ONE (13:07)
[2020-08-26] MEDS: HYDROmorphone 1 MG/ML, 1ML INJ IVPush PRN ×8 (13:10→14:09)
[2020-08-26] MEDS: DIAZEPAM 5 MG/ML, 2ML IVPush PRN ×2 (13:13→13:28)
[2020-08-26] MEDS ORDERED: hydrALAzine 20 MG/ML, 1ML IV PRN (13:30)
[2020-08-26] MEDS ORDERED: PROMETHAZINE 25 MG/ML, 1ML IVPush PRN (13:30)
[2020-08-26] MEDS ORDERED: ONDANSETRON 2MG/ML, 2ML IVPush PRN (13:30)
[2020-08-26] MEDS ORDERED: DIPHENHYDRAMINE 50 MG/ML, 1ML IVPush PRN (13:30)
[2020-08-26] MEDS ORDERED: HYDROmorphone 2 MG/ML, 1ML ONE (13:30)
[2020-08-26] MEDS ORDERED: METHOCARBAMOL 1,000 MG in DEXTROSE 5% 100 ML IV PRN (13:30)
[2020-08-26] MEDS ORDERED: LABETALOL 5MG/ML, 20ML IV PRN (13:30)
[2020-08-26] MEDS ORDERED: MEPERIDINE/PF 25MG/ML,1ML ONE ×2 (13:30→14:08)
[2020-08-26] MEDS ORDERED: OXYcodone 5 MG/5 ML ORAL.SOL UDC PO PRN (13:30)
[2020-08-26] MEDS: MEPERIDINE/PF 25MG/0.5ML IVPush PRN ×2 (13:39→14:09)
[2020-08-26] MEDS ORDERED: PROMETHAZINE 25 MG/ML, 1ML ONE (13:54)
[2020-08-26 15:15] VITALS: BP 120/80
[2020-08-26] MEDS ORDERED: LORazepam 2 MG/ML, 1ML IV PRN (16:00)
[2020-08-26] MEDS: POTASSIUM CHLORIDE 20 MEQ in LACTATED RINGERS 1,000 ML IV SCH (16:59)
[2020-08-26] MEDS: CEFOTETAN PMX 1GM/50ML 50 ML IVPB SCH (16:59)
[2020-08-26] MEDS: morphine SULFATE 10 MG/ML, 1ML IV PRN ×6 (17:00→20:04)
[2020-08-26] MEDS: LORazepam 1MG TABLET PO PRN (18:31)
[2020-08-26 19:00] VITALS: BP 116/79
[2020-08-26] MEDS: TEMAZEPAM 15 MG CAPSULE PO SCH (20:10)
[2020-08-26] MEDS: AMITRIPTYLINE 75 MG TABLET PO SCH (20:10)
[2020-08-26] MEDS: ACETAMINOPHEN 325 MG TABLET PO PRN (20:23)
[2020-08-26] MEDS: HYDROmorphone 2 MG/ML, 1ML IVPush PRN ×4 (21:26→22:30)
[2020-08-27] VITALS (9 sets, daily range): BP systolic 121–171; BP diastolic 79–110
[2020-08-27] MEDS: CEFOTETAN PMX 1GM/50ML 50 ML IVPB SCH ×2 (00:39→12:41)
[2020-08-27] MEDS: POTASSIUM CHLORIDE 20 MEQ in LACTATED RINGERS 1,000 ML IV SCH ×3 (00:39→16:53)
[2020-08-27] MEDS: HYDROmorphone 2 MG/ML, 1ML IVPush PRN ×7 (01:35→21:42)
[2020-08-27 05:21] LABS: BASOPHILS % (AUTO) 0 % (0-1); EOSINOPHILS % (AUTO) 1 % (1-7); LYMPHOCYTES % (AUTO) 20 % (22-44); MEAN CORPUSCULAR HEMOGLOBIN 31.4 pg (27.0-34.8); MEAN CORPUSCULAR HGB CONC 33.6 g/dL (32.4-35.8); MEAN PLATELET VOLUME 7.4 fL (7.4-10.4); MONOCYTES % (AUTO) 6 % (2-9); NEUTROPHILS % (AUTO) 74 % (42-75); PLATELET COUNT 263 x10^3/uL (130-400); RED BLOOD COUNT 3.46 x10^6/uL (3.82-5.3); RED CELL DISTRIBUTION WIDTH 13.9 % (9.6-15.2)
[2020-08-27 05:22] LABS: MD NO
[2020-08-27 05:31] LABS: ALBUMIN 2.4 g/dL (3.4-5.0); ANION GAP 5 mmol/L (5-15); CALCIUM 8.1 mg/dL (8.5-10.1); CHLORIDE 100 mmol/L (98-107)
[2020-08-27 05:37] LABS: ALANINE AMINOTRANSFERASE 13 U/L (12-78); ALKALINE PHOSPHATASE 75 U/L (45-117); BILIRUBIN,TOTAL 0.5 mg/dL (0.2-1.0); CREATININE 0.71 mg/dL (0.55-1.02)
[2020-08-27] MEDS: ENOXAPARIN 40 MG/0.4 ML SQ SCH (06:10)
[2020-08-27] MEDS: ACETAMINOPHEN 325 MG TABLET PO PRN (06:16)
[2020-08-27] MEDS: LORazepam 1MG TABLET PO PRN (06:16)
[2020-08-27] MEDS: LISINOPRIL 10 MG TABLET PO SCH (08:31)
[2020-08-27] MEDS: SODIUM CHLORIDE FLUSH 10ML SYR IVF SCH ×2 (08:32→20:40)
[2020-08-27] MEDS: ONDANSETRON 2MG/ML, 2ML IVPush PRN (17:48)
[2020-08-27] MEDS ORDERED: MAGNESIUM SULFATE PMX 2GM/50ML 50 ML IV ONE (19:00)
[2020-08-27] MEDS: PROMETHAZINE 25 MG/ML, 1ML IM PRN (20:37)
[2020-08-27] MEDS: AMITRIPTYLINE 75 MG TABLET PO SCH (20:37)
[2020-08-27] MEDS: TEMAZEPAM 15 MG CAPSULE PO SCH (20:37)
[2020-08-28] MEDS: HYDROmorphone 2 MG/ML, 1ML IVPush PRN ×3 (00:33→08:26)
[2020-08-28 00:55] VITALS: BP 145/78
[2020-08-28 05:55] LABS: BASOPHILS % (AUTO) 0 % (0-1); EOSINOPHILS % (AUTO) 1 % (1-7); LYMPHOCYTES % (AUTO) 20 % (22-44); MEAN CORPUSCULAR HEMOGLOBIN 31.3 pg (27.0-34.8); MEAN CORPUSCULAR HGB CONC 33.4 g/dL (32.4-35.8); MEAN PLATELET VOLUME 7.2 fL (7.4-10.4); MONOCYTES % (AUTO) 7 % (2-9); NEUTROPHILS % (AUTO) 72 % (42-75); PLATELET COUNT 288 x10^3/uL (130-400); RED BLOOD COUNT 3.51 x10^6/uL (3.82-5.3); RED CELL DISTRIBUTION WIDTH 13.4 % (9.6-15.2)
[2020-08-28 05:57] LABS: MD NO
[2020-08-28 06:07] LABS: ALANINE AMINOTRANSFERASE 14 U/L (12-78); ALBUMIN 2.4 g/dL (3.4-5.0); ANION GAP 6 mmol/L (5-15); CALCIUM 8.4 mg/dL (8.5-10.1); CHLORIDE 97 mmol/L (98-107); CREATININE 0.48 mg/dL (0.55-1.02)
[2020-08-28 06:09] LABS: ALKALINE PHOSPHATASE 78 U/L (45-117); BILIRUBIN,TOTAL 0.5 mg/dL (0.2-1.0); TOTAL PROTEIN 6.5 g/dL (6.4-8.2)
[2020-08-28] MEDS: POTASSIUM CHLORIDE 20 MEQ in LACTATED RINGERS 1,000 ML IV SCH (06:51)
[2020-08-28] MEDS: ENOXAPARIN 40 MG/0.4 ML SQ SCH (06:52)
[2020-08-28 08:05] VITALS: BP 134/87
[2020-08-28] MEDS: SODIUM CHLORIDE 0.9% 1,000 ML IV SCH ×2 (08:27→16:58)
[2020-08-28] MEDS: SODIUM CHLORIDE FLUSH 10ML SYR IVF SCH ×2 (09:02→21:00)
[2020-08-28] MEDS: LISINOPRIL 10 MG TABLET PO SCH (09:02)
[2020-08-28 11:30] VITALS: BP 134/87
[2020-08-28] MEDS: ACETAMINOPHEN 325 MG TABLET PO PRN (11:32)
[2020-08-28 13:50] VITALS: BP 150/92
[2020-08-28] MEDS: OXYcodone/APAP 10/325MG TABLET PO PRN ×2 (16:58→20:57)
[2020-08-28 19:24] VITALS: BP 144/89
[2020-08-28] MEDS: AMITRIPTYLINE 75 MG TABLET PO SCH (20:56)
[2020-08-28] MEDS: TEMAZEPAM 15 MG CAPSULE PO SCH (20:57)
[2020-08-29] MEDS: SODIUM CHLORIDE 0.9% 1,000 ML IV SCH ×3 (00:11→16:30)
[2020-08-29] MEDS: LORazepam 1MG TABLET PO PRN (00:23)
[2020-08-29 01:12] VITALS: BP 143/84
[2020-08-29] MEDS: OXYcodone/APAP 10/325MG TABLET PO PRN ×4 (05:32→20:17)
[2020-08-29] MEDS: ENOXAPARIN 40 MG/0.4 ML SQ SCH (05:32)
[2020-08-29 06:03] LABS: ANION GAP 4 mmol/L (5-15); CALCIUM 8.3 mg/dL (8.5-10.1); CHLORIDE 104 mmol/L (98-107)
[2020-08-29 06:05] LABS: CREATININE 0.52 mg/dL (0.55-1.02)
[2020-08-29 07:45] VITALS: BP 117/74
[2020-08-29] MEDS ORDERED: BISACODYL 10 MG SUPP PR ONE (08:00)
[2020-08-29] MEDS ORDERED: LISINOPRIL 20 MG TABLET ONE (08:57)
[2020-08-29] MEDS: METOCLOPRAMIDE 5 MG/ML, 2ML IVPush SCH ×3 (09:03→22:09)
[2020-08-29] MEDS: LISINOPRIL 10 MG TABLET PO SCH (09:04)
[2020-08-29] MEDS: SODIUM CHLORIDE FLUSH 10ML SYR IVF SCH ×2 (09:13→20:18)
[2020-08-29 12:49] VITALS: BP 128/80
[2020-08-29] MEDS: ONDANSETRON 2MG/ML, 2ML IV PRN (15:56)
[2020-08-29 19:45] VITALS: BP 136/74
[2020-08-29] MEDS: AMITRIPTYLINE 75 MG TABLET PO SCH (20:16)
[2020-08-29] MEDS: TEMAZEPAM 15 MG CAPSULE PO SCH (20:18)
[2020-08-30 00:51] VITALS: BP 162/95
[2020-08-30] MEDS: OXYcodone/APAP 10/325MG TABLET PO PRN ×5 (00:52→23:28)
[2020-08-30] MEDS: SODIUM CHLORIDE 0.9% 1,000 ML IV SCH ×3 (00:53→16:30)
[2020-08-30 00:57] VITALS: BP 149/93
[2020-08-30 05:07] LABS: BASOPHILS % (AUTO) 1 % (0-1); EOSINOPHILS % (AUTO) 2 % (1-7); LYMPHOCYTES % (AUTO) 30 % (22-44); MEAN CORPUSCULAR HEMOGLOBIN 31.7 pg (27.0-34.8); MEAN CORPUSCULAR HGB CONC 33.4 g/dL (32.4-35.8); MEAN PLATELET VOLUME 7.1 fL (7.4-10.4); MONOCYTES % (AUTO) 9 % (2-9); NEUTROPHILS % (AUTO) 58 % (42-75); PLATELET COUNT 271 x10^3/uL (130-400); RED BLOOD COUNT 3.22 x10^6/uL (3.82-5.3); RED CELL DISTRIBUTION WIDTH 13.6 % (9.6-15.2)
[2020-08-30] MEDS: METOCLOPRAMIDE 5 MG/ML, 2ML IVPush SCH ×4 (05:10→23:28)
[2020-08-30 05:16] LABS: CHLORIDE 105 mmol/L (98-107)
[2020-08-30 05:18] LABS: MD NO
[2020-08-30 05:20] LABS: ANION GAP 3 mmol/L (5-15); CALCIUM 7.8 mg/dL (8.5-10.1); CREATININE 0.47 mg/dL (0.55-1.02)
[2020-08-30] MEDS: ENOXAPARIN 40 MG/0.4 ML SQ SCH (05:21)
[2020-08-30 07:40] VITALS: BP 144/86
[2020-08-30] MEDS: SODIUM CHLORIDE FLUSH 10ML SYR IVF SCH ×2 (09:00→20:45)
[2020-08-30] MEDS: LISINOPRIL 10 MG TABLET PO SCH (11:00)
[2020-08-30 12:15] VITALS: BP 142/90
[2020-08-30] MEDS ORDERED: HYDROmorphone 1 MG/ML, 1ML INJ IV PRN (17:00)
[2020-08-30] MEDS: NICOTINE 14MG/24 HR PATCH.TD24 TD SCH (18:48)
[2020-08-30 19:17] VITALS: BP 169/93
[2020-08-30] MEDS: AMITRIPTYLINE 75 MG TABLET PO SCH (20:44)
[2020-08-30] MEDS: TEMAZEPAM 15 MG CAPSULE PO SCH (20:44)
[2020-08-31] MEDS: D5%-0.9% NACL 1,000 ML IV SCH ×3 (00:29→20:29)
[2020-08-31 01:04] VITALS: BP 165/91
[2020-08-31] MEDS: OXYcodone/APAP 10/325MG TABLET PO PRN ×4 (03:19→18:08)
[2020-08-31] MEDS: METOCLOPRAMIDE 5 MG/ML, 2ML IVPush SCH ×4 (05:18→23:30)
[2020-08-31] MEDS: ENOXAPARIN 40 MG/0.4 ML SQ SCH (05:18)
[2020-08-31 05:28] LABS: BASOPHILS % (AUTO) 1 % (0-1); EOSINOPHILS % (AUTO) 3 % (1-7); LYMPHOCYTES % (AUTO) 31 % (22-44); MEAN CORPUSCULAR HEMOGLOBIN 31.2 pg (27.0-34.8); MEAN CORPUSCULAR HGB CONC 33.7 g/dL (32.4-35.8); MEAN PLATELET VOLUME 6.8 fL (7.4-10.4); MONOCYTES % (AUTO) 9 % (2-9); NEUTROPHILS % (AUTO) 57 % (42-75); PLATELET COUNT 258 x10^3/uL (130-400); RED BLOOD COUNT 3.31 x10^6/uL (3.82-5.3); RED CELL DISTRIBUTION WIDTH 13.6 % (9.6-15.2)
[2020-08-31 05:32] LABS: CHLORIDE 103 mmol/L (98-107)
[2020-08-31 05:36] LABS: ANION GAP 6 mmol/L (5-15); CALCIUM 8.1 mg/dL (8.5-10.1); CREATININE 0.44 mg/dL (0.55-1.02)
[2020-08-31 05:47] LABS: MD NO
[2020-08-31 07:35] VITALS: BP 154/87
[2020-08-31] MEDS ORDERED: BISACODYL 10 MG SUPP PR PRN ×2 (08:00→16:30)
[2020-08-31] MEDS ORDERED: POTASSIUM CHLORIDE 40 MEQ in SODIUM CHLORIDE 0.9% 500 ML IV ONE (08:00)
[2020-08-31] MEDS ORDERED: MAGNESIUM SULFATE PMX 4GM/100M 100 ML IVPB ONE (08:00)
[2020-08-31] MEDS: NICOTINE 14MG/24 HR PATCH.TD24 TD SCH (08:03)
[2020-08-31] MEDS: LISINOPRIL 10 MG TABLET PO SCH (08:03)
[2020-08-31] MEDS: MAGNESIUM HYDROXIDE 8%, 30ML UDC PO SCH ×2 (08:03→20:25)
[2020-08-31] MEDS: POLYETHYLENE GLYCOL 17 GM PACKET NG SCH ×2 (08:04→20:27)
[2020-08-31] MEDS: SODIUM CHLORIDE FLUSH 10ML SYR IVF SCH ×2 (08:10→20:29)
[2020-08-31 12:27] VITALS: BP 152/92
[2020-08-31] MEDS: ONDANSETRON 2MG/ML, 2ML IV PRN (16:21)
[2020-08-31] MEDS: TEMAZEPAM 15 MG CAPSULE PO SCH (20:25)
[2020-08-31] MEDS: AMITRIPTYLINE 75 MG TABLET PO SCH (20:26)
[2020-08-31 20:27] VITALS: BP 135/87
[2020-09-01 02:39] VITALS: BP 135/83
[2020-09-01] MEDS: OXYcodone/APAP 10/325MG TABLET PO PRN ×4 (03:02→16:24)
[2020-09-01 05:37] LABS: ANION GAP 5 mmol/L (5-15); CALCIUM 8.3 mg/dL (8.5-10.1); CHLORIDE 104 mmol/L (98-107)
[2020-09-01 05:38] LABS: CREATININE 0.68 mg/dL (0.55-1.02)
[2020-09-01] MEDS: ENOXAPARIN 40 MG/0.4 ML SQ SCH (06:24)
[2020-09-01] MEDS: METOCLOPRAMIDE 5 MG/ML, 2ML IVPush SCH ×2 (06:24→12:30)
[2020-09-01 08:10] VITALS: BP 116/77
[2020-09-01] MEDS: LISINOPRIL 10 MG TABLET PO SCH (08:26)
[2020-09-01] MEDS: NICOTINE 14MG/24 HR PATCH.TD24 TD SCH (08:26)
[2020-09-01] MEDS: POLYETHYLENE GLYCOL 17 GM PACKET NG SCH (08:26)
[2020-09-01] MEDS: SODIUM CHLORIDE FLUSH 10ML SYR IVF SCH (08:29)
[2020-09-01 11:46] VITALS: BP 135/85
[2020-09-01] MEDS ORDERED: CYCL10TA2 PO (14:47)
[2020-09-01] MEDS ORDERED: ONDA4TAB13 PO (14:47)
[2020-09-01] MEDS ORDERED: TRIA15CR53 TP (14:47)
[2020-09-01] MEDS ORDERED: METO5TAB57 PO (14:47)
[2020-09-01] MEDS ORDERED: NICO-486 TD (14:47)
[2020-09-01] MEDS ORDERED: POLY17PO5 PO (14:54)
== END 2020-09-01 17:20 | disposition home health service (06) | DRG 336 ==
LOC: ED 08-25 01:17 → EDIP 08-25 01:30 → 4NE 08-25 02:00
PROVIDERS: ADMIT Internal Medicine; ATTEND Internal Medicine
PROC: 0DJ00ZZ Inspection of Upper Intestinal Tract, Open Approach (ICD-10-PCS; 2020-08-26)
PROC: 0DN80ZZ Release Small Intestine, Open Approach (ICD-10-PCS; principal; 2020-08-26 12:00)
DX: K56.50 Intestinal adhesions [bands], unspecified as to partial versus complete obstruction (principal); E87.2 Acidosis; K56.7 Ileus, unspecified; R11.2 Nausea with vomiting, unspecified; Z20.822 Contact with and (suspected) exposure to COVID-19; K74.69 Other cirrhosis of liver; E11.649 Type 2 diabetes mellitus with hypoglycemia without coma; E78.5 Hyperlipidemia, unspecified; E83.42 Hypomagnesemia; E86.0 Dehydration; E87.6 Hypokalemia; F17.210 Nicotine dependence, cigarettes, uncomplicated; G47.00 Insomnia, unspecified; G89.4 Chronic pain syndrome; I10 Essential (primary) hypertension; J44.9 Chronic obstructive pulmonary disease, unspecified; K75.81 Nonalcoholic steatohepatitis (NASH); M32.9 Systemic lupus erythematosus, unspecified; M79.7 Fibromyalgia; N73.6 Female pelvic peritoneal adhesions (postinfective); T40.2X5A Adverse effect of other opioids, initial encounter; E66.01 Morbid (severe) obesity due to excess calories; F32.9 Major depressive disorder, single episode, unspecified; K21.9 Gastro-esophageal reflux disease without esophagitis; K59.03 Drug induced constipation; W18.39XA Other fall on same level, initial encounter; Z68.30 Body mass index [BMI] 30.0-30.9, adult; Z79.4 Long term (current) use of insulin; Z79.891 Long term (current) use of opiate analgesic; Z79.899 Other long term (current) drug therapy; Z82.49 Family history of ischemic heart disease and other diseases of the circulatory system; Z83.3 Family history of diabetes mellitus; Z90.710 Acquired absence of both cervix and uterus; Z98.1 Arthrodesis status; Z90.49 Acquired absence of other specified parts of digestive tract; Z98.891 History of uterine scar from previous surgery; Y93.89 Activity, other specified; Y92.89 Other specified places as the place of occurrence of the external cause; Y99.8 Other external cause status; Z88.9 Allergy status to unspecified drugs, medicaments and biological substances
CPT/HCPCS: 36415; 71045; 74018; 74177; 80048; 80053; 80061; 82962; 83036; 83605; 83690; 83735; 84100; 84439; 84443; 85025; 87040; 87635; 93005; 96361; 96374; 96375; G0378; J0690; J1170; J1644; J1650; J2175; J2250; J2405; J2550; J2704; J3010; J3360; J3480; J7042; Q9967; J0360; J1815; J2060; J2270; J2765; J2800; J3475; J7030; J7040; J7120

== ENCOUNTER 2020-09-12 04:07 | Emergency (ER) | payer MEDICARE, MEDICAID ==
[~2020-09-12] VITALS: Ht 165.1 cm; Wt 79.1 kg
[~2020-09-12 04:07] MED LIST changes: +METO5TAB57 PO; +NICO-486 TD; +ONDA4TAB13 PO; +POLY17PO5 PO
--- NOTE | 2020-09-12 04:28 | NUR ---
MGLF, HEAD INJURY W, AVULSION TO UPPER R EYE. BLEEDING CONTROLED. NO LOC. NO BLOOD THINNNER. DENNIES MIDLINE NECK PAIN. L KNEE PAIN. PT ALSO COMPALING OF BACK PAIN AND REQUESTING IT BE LOOKED AT ALSO. PT STATES HAS DENTURES BUT THEY ARE NOT IN.
[2020-09-12] MEDS ORDERED: LIDOCAINE-MPF 1%, 5ML INFIL ONE (04:30)
[2020-09-12] MEDS ORDERED: ONDANSETRON 2MG/ML, 2ML IVPush ONE (04:30)
--- NOTE | 2020-09-12 04:30 | NUR ---
PT TO X-RAY WITH TECH.
[2020-09-12] MEDS ORDERED: LIDOCAINE-MPF 1%, 5ML ONE (04:32)
[2020-09-12] MEDS ORDERED: ONDANSETRON 2MG/ML, 2ML ONE (04:37)
[2020-09-12] MEDS ORDERED: MORPHINE SULFATE 4 MG/ML, 1ML ONE ×2 (04:38→05:47)
[2020-09-12] MEDS: MORPHINE SULFATE 4 MG/ML, 1ML IVPush PRN ×2 (04:42→05:51)
--- NOTE | 2020-09-12 05:04 | NUR ---
TALA PICKARD PT AT THIS TIME.
--- NOTE | 2020-09-12 05:20 | NUR ---
PT TO CT PT REQUESTING PAIN MEDS.
--- NOTE | 2020-09-12 05:38 | NUR ---
PT BACK FROM CT VSS ELEVATED HR AND ELEVATED BP. PT REQUESTED BED ADJUSTED FOR COMFORT. PT PUT ON 2L OF O2, DESATURATION IN THE MID 80'S.
--- NOTE | 2020-09-12 05:49 | NUR ---
PT REQUESTING PAIN MEDS 7/10 BACK PAIN THROBBING/ACHE.
[2020-09-12 06:39] VITALS: BP 151/91
--- NOTE | 2020-09-12 06:52 | NUR ---
Placed a 2x2 gauze over abrasion of right eye per provider request. Patient given discharge instructions and they have confirmed that they understand the instructions. Patient ambulatory with steady gait. No quesitons at time of discharge.
== END 2020-09-12 06:58 | disposition home or self-care (01) ==
LOC: ED 06:11
DX: S01.81XA Laceration without foreign body of other part of head, initial encounter (principal); S16.1XXA Strain of muscle, fascia and tendon at neck level, initial encounter; M54.5 Low back pain; I10 Essential (primary) hypertension; E11.9 Type 2 diabetes mellitus without complications; E78.00 Pure hypercholesterolemia, unspecified; E78.5 Hyperlipidemia, unspecified; Z90.710 Acquired absence of both cervix and uterus; Z90.721 Acquired absence of ovaries, unilateral; W01.0XXA Fall on same level from slipping, tripping and stumbling without subsequent striking against object, initial encounter; Y93.89 Activity, other specified; Y92.009 Unspecified place in unspecified non-institutional (private) residence as the place of occurrence of the external cause; Y99.8 Other external cause status
CPT/HCPCS: 12052; 70450; 72125; 72131; 73564; 96374; 96375; 96376; 99285; J2270; J2405; 12042